=== PATIENT | male | born 1985 | race Caucasian/White ===

== ENCOUNTER 2023-08-03 22:46 | Emergency (ER) | payer OTHER ==
[~2023-08-03] VITALS: Ht 172.7 cm; Wt 79.4 kg
[2023-08-03 22:53] VITALS: BP 140/88; TEMP 98.2
[2023-08-03 23:10] VITALS: O2SAT 99
== END 2023-08-03 23:15 ==
LOC: ER 23:01
DX: S31.130A Puncture wound of abdominal wall without foreign body, right upper quadrant without penetration into peritoneal cavity, initial encounter (principal); Z60.2 Problems related to living alone; X58.XXXA Exposure to other specified factors, initial encounter; Y93.89 Activity, other specified; Y92.89 Other specified places as the place of occurrence of the external cause; Y99.8 Other external cause status